=== PATIENT | female | born 1980 | race Caucasian/White ===

== ENCOUNTER 2018-04-05 18:51 | Emergency (ER) | payer SELFPAY ==
[~2018-04-05 18:51] MED LIST: Sodium Chloride 0.9% 1,000 ML BAG ONE
[2018-04-05 19:48] LABS: Bilirubin Large (Negative); Blood, Urine Large (Negative); Clarity Cloudy (Clear); Glucose, Urine (Dipstick) 100 mg/dL (Negative); Leukocyte Large (Negative); Nitrite Positive (Negative); Protein, Urine (Dipstick) > or equal to 300 mg/dL (Neg-Trace)
[2018-04-05 19:50] LABS: RBC/HPF GREATER THAN 50-TNTC HPF (0-3); Squamous Epithelial 0-3 HPF (0-3); WBC/HPF 21-50 HPF (0-3)
[2018-04-05 19:51] LABS: Bacteria/HPF 1+ HPF (None Seen)
[2018-04-05 20:05] LABS: Pregnancy Test - Urine (BHCG) Negative (Negative); Pregu Control Background? CLEAR/WHITE (CLR/WHITE); Pregu Control Bar Appear? YES (CONTROL BAR)
[2018-04-05 20:38] LABS: #Basophils 0.1 thou/uL (0.0-0.2); #Eosinphils 0.2 thou/uL (0.0-0.7); #Lymphocytes 3.7 thou/uL (1.20-3.40); #Monocytes 0.7 thou/uL (0.11-0.59); #Neutrophils 3.8 thou/uL (1.40-6.50); %Basophils 1.3 % (0.0-1.0); %Eosinophils 2.8 % (0.0-10.0); %Lymphocytes 43.1 % (21.0-51.0); %Monocytes 8.5 % (0.0-10.0); %Neutrophils 44.3 % (42.0-75.0); Hemoglobin 14.8 g/dL (12.0-16.0); Mean Corpuscular HGB CONC 34.3 g/dL (32.0-36.0); Mean Corpuscular Hemoglobin 32.6 pg (27.0-31.0); Mean Corpuscular Volume 95.1 fL (78.0-98.0); Mean Platelet Volume 6.3 fL (7.4-10.4); Platelet Count 432 thou/uL (130-400); RBC Distribution Width 11.9 % (11.5-14.5); Red Blood Cell (RBC) Count 4.53 mill/uL (4.20-5.40); White Blood Cell (WBC) Count 8.6 thou/uL (4.8-10.8)
[2018-04-05] MEDS ORDERED: Ondansetron HCl/PF 4 MG/2 ML Vial ONE (20:50)
[2018-04-05] MEDS ORDERED: Ketorolac Tromethamine 30 MG/ML VIAL ONE (20:51)
[2018-04-05 20:56] LABS: ALT (SGPT) 14 U/L (8-55); AST (SGOT) 14 U/L (5-34); Albumin 4.1 g/dL (3.5-5.0); Alkaline Phosphatase 63 U/L (40-150); Anion Gap 14 mmol/L (10-20); BUN (Urea Nitrogen) 9 mg/dL (7.0-18.7); Bilirubin, Total 0.2 mg/dL (0.2-1.2); Calc. Creatinine Clearance 0 mL/min (70-130); Carbon Dioxide 22 mmol/L (22-29); Chloride 110 mmol/L (98-107); Estimated GFR-MDRD Greater than 90; Globulin 2.9 g/dL (2.4-3.5); Glucose 84 mg/dL (70-105); Potassium 3.7 mmol/L (3.5-5.1); Sodium 142 mmol/L (136-145)
[2018-04-05] MEDS ORDERED: traMADol HCl 50 MG TAB ONE (21:29)
--- NOTE | 2018-04-05 22:19 | CT ---
CT OF ABDOMEN AND PELVIS PERFORMED WITHOUT CONTRAST ENHANCEMENT: 04/05/18 HISTORY: Right flank pain. The lung bases are clear. The liver, spleen, pancreas and gallbladder regions appear unremarkable giv en the limitations of a noncontrast study. The right and left adrenal gland are normal in appearance. Right and left kidneys are normal in size. They are not obstructed. No renal or ureteral calculi are identified. There is no significant periao rtic or mesenteric adenopathy. CT OF PELVIS PERFORMED WITHOUT CONTRAST ENHANCEMENT: Patient has undergone tubal ligation. There is no evidence of adenopathy, mass or free fluid. The celia endix is not definitively identified but there is no inflammatory change adjacent to the cecum. IMPRESSION: No acute abnormalities of the abdomen or pelvis. POS: [facility]
== END 2018-04-05 21:58 | disposition home or self-care (01) ==
LOC: MADERS 18:51
DX: N10 Acute pyelonephritis (principal); F17.210 Nicotine dependence, cigarettes, uncomplicated
CPT/HCPCS: 36415; 74176; 80053; 81003; 81015; 81025; 85025; 87086; 96360; 96361; J1885; J2405; J7050